=== PATIENT | female | born 1975 | race Caucasian/White ===

== ENCOUNTER 2016-07-17 12:51 | Emergency (ER) | payer SELFPAY ==
[2016-07-17 14:14] VITALS: BP 137/87; PULSE 69; RESP 16; TEMP 98.1; O2SAT 97
--- NOTE | 2016-07-17 15:33 | UCPHY ---
H & P Time Seen by Provider: 07/17/16 15:30 Patient Type: New HPI/ROS: HPI: 40-year-old female presents to urgent care with chief concern abscess on buttock. Reports onset of abscess on buttock intermittently since October. Has been placed on antibiotics twice by primary care. Apparently culture in the past grew strep. Denies fever, chills, nausea, vomiting. Reports 6/10 pain while sitting. Immunocompetent. Non health care worker. No history of MRSA ROS:10 point review of systems is negative other than as stated in HPI Smoking Status: Former smoker Physical Exam: Vital signs stable, reviewed by me General: Awake, alert, calm, cooperative. No acute distress. Head: Normalocephalic. Atraumatic. EENT: PERRLA. EOMI. No pallor or injection. Anicteric. No nystagmus. Neck: Supple, nontender. No lymphadenopathy. Full range of motion. Respiratory: Breathing unlabored. Breath sounds equal bilaterally and clear to auscultation. No adventitious sounds. CV: Chest nontender, atraumatic. Heart rate regular. Brisk cap refill all extremities. GI: Abdomen soft, nontender. Neuro: Alert. Oriented x 3. Speech clear. Skin: Skin warm, dry, intact. Left lower medial buttock with #2 0.25 cm pustular lesions surrounded by 0.75 cm late erythematous annular area. No induration or fluctuance. Skin turgor normal. Extremities: Full range of motion in all 4 extremities. Mental status: Interactive, appropriate, well-groomed. Constitutional: Initial Vital Signs Temperature (C) 36.7 C 07/17/16 14:07 Heart Rate 69 07/17/16 14:07 Respiratory Rate 16 07/17/16 14:07 Blood Pressure 137/87 H 07/17/16 14:07 O2 Sat (%) 97 07/17/16 14:07 O2 Delivery Mode Room Air Allergies/Adverse Reactions: No Known Allergies Allergy (Verified 07/17/16 14:14) Home Medications: Medication Instructions Recorded Sertraline HCl [Zoloft] 08/01/11 Cephalexin [Keflex (RX)] 500 mg PO TID #21 cap 07/17/16 Sulfamethox/Tmp 800/160 mg 1 tab PO BID #14 tab 07/17/16 [Bactrim DS] Wellbutrin 150mg SR (*) 07/17/16 Medical Decision Making ED Course/Re-evaluation: 40-year-old female presents to urgent care with abscess on buttock. Lesions represent furuncles. Not large enough for incision and drainage. No induration or fluctuance. The larger of the 2 lesions was unroofed using a sterile 18. Gauge needle. Very tiny amount of purulent matter expressed. Culture sent to lab. Area washed thoroughly. Bacitracin applied. Patient placed on Keflex and Bactrim. Counseled regarding follow-up with the wound culture, as well as follow up with primary care Differential Diagnosis: Abscess, furuncle, folliculitis Departure - Departure Clinical Impression: Furuncle of buttock Instructions: Furunculosis and Carbunculosis (ED) Additional Instructions: Plan: Antibiotics as prescribed for 1 week Take an [id number] probiotic and/or eat yogurt while taking this antibiotic. You may use 600 mg of ibuprofen every 6 hours for fever, inflammation, or pain. Always take ibuprofen with food and stay well hydrated while taking. Do not exceed the maximum allowable dose in a 24 hour period which is 2400 mg. Warm water soaks for 15 minutes 3 times daily May call [phone] in 48 hours for wound culture results Follow up with primary care after completion of antibiotic for recheck If he develops fever, vomiting, or worsening symptoms go to emergency room Referrals: [place],. [Primary Care Provider] - As per Instructions Prescriptions: Sulfamethox/Tmp 800/160 mg [Bactrim DS] 1 tab PO BID #14 tab Cephalexin [Keflex (RX)] 500 mg PO TID #21 cap - PQRS PQRS Measurement: Not applicable
== END 2016-07-17 15:48 | disposition home or self-care (01) ==
LOC: CED 12:51
DX: L02.32 Furuncle of buttock (principal); Z87.891 Personal history of nicotine dependence
CPT/HCPCS: G0463-PO